=== PATIENT | male | born 1950 | race Hispanic/Latino ===

== ENCOUNTER 2018-10-31 10:47 | Day surgery (SDC) | payer BC ==
[2018-10-26 16:39] LABS: BASOPHILS % (AUTO) 0.5 % (0.0-5.0); EOSINOPHILS % (AUTO) 4.5 % (0.0-8.0); LYMPHOCYTES % (AUTO) 23.5 % (21.0-51.0); MEAN CORPUSCULAR HEMOGLOBIN 28.5 pg (27.0-33.0); MEAN CORPUSCULAR HGB CONC 33.4 g/dL (32.0-36.0); MEAN CORPUSCULAR VOLUME 85.2 fL (79-99); NEUTROPHILS % (AUTO) 64.5 % (40.0-77.0); PLATELET COUNT (AUTO) 241 K/uL (130-400); RED BLOOD CELL COUNT(AUTO) 5.04 MIL/uL (4.50-6.20); RED CELL DISTRIBUTION WIDTH 14.1 % (11.0-15.5); WHITE BLOOD COUNT (AUTO) 8.3 K/uL (4.8-10.8)
[2018-10-26 16:45] VITALS: BP 141/75
[2018-10-26 16:52] LABS: CREATININE 1.1 mg/dL (0.5-1.5)
[2018-10-31] VITALS (16 sets, daily range): BP systolic 104–156; BP diastolic 60–90
[~2018-10-31] VITALS: Ht 174 cm; Wt 98.9 kg
[~2018-10-31 10:47] MED LIST: ASPI-1181 PO; CEFAZOLIN 3GM /D5W 100ML 100 ML IV PRN; LOSA1TAB54 PO; TAMS0.4C32 PO
[2018-10-31] MEDS ORDERED: LACTATED RINGERS 1000ML 0 ML IV ONE (11:41)
[2018-10-31] MEDS ORDERED: SODIUM CHLORIDE 0.9% 1000ML 1,000 ML IV ONE (12:11)
[2018-10-31] MEDS ORDERED: LIDOCAINE PF 2% 5ML ABBOJECT ONE (12:20)
[2018-10-31] MEDS ORDERED: DEXAMETHASONE SOD PHOSPHATE 10MG/ML 1ML VIAL ONE (12:20)
[2018-10-31] MEDS ORDERED: MIDAZOLAM HCL 1 MG/ML 2ML VIAL ONE (12:20)
[2018-10-31] MEDS ORDERED: PROPOFOL 10 MG/ML 20ML VIAL IV ONE ×2 (12:21→12:31)
[2018-10-31] MEDS ORDERED: GLYCOPYRROLATE 1 MG/5 ML SYRINGE ONE (12:21)
[2018-10-31] MEDS ORDERED: NEOSTIGMINE 5MG/5ML SYR IV ONE (12:21)
[2018-10-31] MEDS ORDERED: FENTANYL CITRATE PF 50 MCG/1 ML 2ML VIAL ONE (12:21)
[2018-10-31] MEDS ORDERED: ONDANSETRON HCL 4 MG/2 ML VIAL ONE (12:21)
[2018-10-31] MEDS ORDERED: ROCURONIUM 10MG/1ML SYR 10 MG/ML ML ONE (12:21)
[2018-10-31] MEDS ORDERED: BUPIVACAINE/EPI/PF 0.5% 30ML VIAL IJ ONE (12:39)
[2018-10-31] MEDS ORDERED: DURAMORPH PF1 MG/ML 10ML AMP IV ONE (12:40)
[2018-10-31] MEDS ORDERED: CELESTONE SOLUSPAN 6 MG/ML 5ML VIAL ONE (13:05)
[2018-10-31] MEDS ORDERED: MEPERIDINE-PF 25 MG/ML SYG ONE (13:28)
== END 2018-10-31 14:55 | disposition home or self-care (01) ==
LOC: DAH 10:47
PROVIDERS: ATTEND Orthopaedic Surgery
DX: S72.422A Displaced fracture of lateral condyle of left femur, initial encounter for closed fracture (principal); S83.242A Other tear of medial meniscus, current injury, left knee, initial encounter; X58.XXXA Exposure to other specified factors, initial encounter; Y93.9 Activity, unspecified; Y92.89 Other specified places as the place of occurrence of the external cause; Y99.9 Unspecified external cause status; Z79.899 Other long term (current) drug therapy; Z79.01 Long term (current) use of anticoagulants; I10 Essential (primary) hypertension
CPT/HCPCS: 29879; 29881; 36415; 80048; 82948 ×2; 85025; 93005; A4450; A4649 ×3; A4930; A6223; J0702; J1100; J2001; J2175; J2250; J2274; J2405; J2704 ×2; J2710; J3010; J3490 ×2; J7030; J7120

== ENCOUNTER → 2024-01-02 | Outpatient (CLI) | payer MEDICARE ==
[~2024-01-02] MED LIST changes: -ASPI-1181 PO; +ASPI-1443 PO; -CEFAZOLIN 3GM /D5W 100ML 100 ML IV PRN
== END | disposition home or self-care (01) ==
LOC: SHCH 07:41
PROVIDERS: ATTEND Internal Medicine
DX: I37.1 Nonrheumatic pulmonary valve insufficiency (principal); R94.31 Abnormal electrocardiogram [ECG] [EKG]; I10 Essential (primary) hypertension; E11.9 Type 2 diabetes mellitus without complications; R04.2 Hemoptysis
CPT/HCPCS: 93306

== ENCOUNTER → 2024-10-04 | Outpatient (CLI) | payer OTHER ==
--- NOTE | 2024-10-04 14:03 | HMCIMG ---
CT CORONARY CALCIFICATION SCORING: Anatomic images were reviewed. The calcium score is being generated and reported separately. This report is for the visualized anatomy only. Visualized portions of the lungs are clear. Hilar and mediastinal structures appear normal. Osseous structures are unremarkable. Impression: 1. Negative noncardiac anatomic findings. 2. The calcium score is 233.5 consistent with a moderate degree of calcified plaque. This is 50th percentile for a patient this age. CT was performed with one or more following dose reduction techniques: automated exposure control, adjustment of the mA and kv according to patient's size, or use of a iterative reconstruction technique.
== END | disposition home or self-care (01) ==
LOC: RAH 12:25
PROVIDERS: ATTEND Internal Medicine
DX: Z13.6 Encounter for screening for cardiovascular disorders (principal); R00.0 Tachycardia, unspecified; I38 Endocarditis, valve unspecified; Z82.49 Family history of ischemic heart disease and other diseases of the circulatory system; R93.1 Abnormal findings on diagnostic imaging of heart and coronary circulation
CPT/HCPCS: 75571